=== PATIENT | male | born 1990 | race Caucasian/White ===

== ENCOUNTER 2018-08-25 20:00 | Emergency (ER) | payer OTHER ==
[~2018-08-25] VITALS: Ht 188 cm; Wt 82.5 kg
--- OUTSIDE RECORDS SUMMARY | ~2018-08-25 | XMS | Clinical Summary ---
Demographics + + + | Address | [address] | | | [place] [address] | + + + | Home Phone | | + + + | Preferred Language | Unknown | + + + | Marital Status | Single | + + + | Methodist Affiliation | Unknown | + + + | Race | Unknown | + + + | Ethnic Group | Unknown | + + + Author + + + | Author | [facility] | | | and [place] | + + + | Organization | [facility] | | | and [place] | + + + | Address | Unknown | + + + | Phone | Unavailable | + + + Support + + +---------+ + | Name | Relationship | Address | Phone | + + +---------+ + | JEFF CR | ECON | Unknown | | | Lori/RUIZ Hwang | | | | + + +---------+ + Care Team Providers + +------+ + | Care Bacteriologist Medical Name | Role | Phone | + +------+ + PP | Unavailable | + +------+ + Allergies Not on File Current Medications Not on file Active Problems Not on file Social History + +-------+ +--------+------+ | Tobacco Use | Types | Packs/Day | Years | Date | | | | | Used | | + +-------+ +--------+------+ | Never Assessed | | | | | + +-------+ +--------+------+ + + + | Sex Assigned at | Date Recorded | | | | + + + | Not on file | | + + + Plan of Treatment + + + + + | Health Maintenance | Due Date | Last Done | Comments | + + + + + | Vaccine: | | | | | Dtap/Tdap/Td (1 - | 8 | | | | Tdap) | | | | + + + + + | Vaccine: Influenza | | | | | (#1) | 8 | | | + + + + + Results Not on filefrom Last 3 Months"
--- OUTSIDE RECORDS SUMMARY | ~2018-08-25 | XMS | Clinical Summary ---
Demographics + + + | Address | [address] | | | [place] [address] | + + + | Home Phone | | + + + | Preferred Language | Unknown | + + + | Marital Status | Single | + + + | Shinto Affiliation | Unknown | + + + | Race | Unknown | + + + | Ethnic Group | Unknown | + + + Author + + + | Author | [facility] | | | and [place] | + + + | Organization | [facility] | | | and [...] Team Providers + +------+ + | Care Riprap Placer Name | Role | Phone | + [...]
[~2018-08-25 20:00] MED LIST: ATIVAN1 MG PO; CEPHALEXIN500 MG PO; EXCEDRIN MIGRA1 EAC2 PO; NAPROSYN500 MG PO; NAPROXEN375 MG PO; NORCO 5-325 TA1 EACH PO; ROBAXIN-750750 MG PO; ROBAXIN500 MG PO; TRAMADOL HCL50 MG PO
[2018-08-25] MEDS ORDERED: KEFLEX500 MG PO (22:12)
== END 2018-08-25 23:02 | disposition home or self-care (01) ==
LOC: ED 20:00
DX: L03.115 Cellulitis of right lower limb (principal); F17.200 Nicotine dependence, unspecified, uncomplicated
CPT/HCPCS: 96372; 99283-25; J0696

== ENCOUNTER 2023-03-28 16:41 | Emergency (ER) | payer OTHER ==
[~2023-03-28] VITALS: Ht 188 cm; Wt 89.8 kg
[~2023-03-28 16:41] MED LIST changes: +KEFLEX500 MG PO
[2023-03-28 17:28] LABS: HEMATOCRIT 43.3 % (35.0-50.0)
[2023-03-28 17:31] LABS: BASOPHILS 0.3 % (0-2); EOSINOPHILS 2.6 % (0-6); HEMOGLOBIN 14.4 g/dL (12.0-18.0); LYMPHOCYTES 4.9 % (24-44); MCH 29.5 (27-36); MCHC 33.2 g/dl (30-36); MCV 88.9 fl (81-99); MONOCYTES 4.2 % (0-12); PLATELET COUNT 225 K/uL (140-440); RBC 4.87 M/ul (4.3-5.7); RDW 13.5 (10.5-15.0)
[2023-03-28 17:41] LABS: ALBUMIN 4.4 g/dL (3.4-5.0); ALBUMIN/GLOBULIN RATIO 1.33 (1.1-2.4); ANION GAP 16.2 (7-21); BILIRUBIN, TOTAL 0.9 ng/dL (0.2-1.0); BUN/CREATININE RATIO 8.65 (6.0-28.6); CALCIUM 9.1 mg/dL (8.5-10.1); CREATININE, SERUM 1.04 mg/dL (0.70-1.30); POTASSIUM 4.2 mmol/L (3.5-5.1); PROTEIN, TOTAL 7.7 g/dL (6.4-8.2)
[2023-03-28 18:39] LABS: BILIRUBIN, URINE NEGATIVE (negative); BLOOD/HGB, URINE TRACE-I (Negative); KETONE, URINE NEGATIVE (Negative); LEUK ESTERASE, URINE NEGATIVE (negative); NITRITE, URINE NEGATIVE (negative)
[2023-03-28 18:49] LABS: EPITHELIAL CELLS, URINE SQUAMOUS 1+ /lpf (0-1+); RED BLOOD CELLS, URINE 0-1 /hpf (0-5); REFLEX CULTURE, URINE No (No); WHITE BLOOD CELLS, URINE 0-1 /HPF (0-5)
[2023-03-28] MEDS ORDERED: ONDANSETRON ODT8 MG PO (20:12)
[2023-03-28 20:30] VITALS: BP 135/89
== END 2023-03-28 20:30 | disposition home or self-care (01) ==
LOC: ED 16:41
PROVIDERS: Emergency Medicine
DX: K52.9 Noninfective gastroenteritis and colitis, unspecified (principal); F17.200 Nicotine dependence, unspecified, uncomplicated; Z79.899 Other long term (current) drug therapy
CPT/HCPCS: 36415; 71045; 76705; 80053; 81001; 83690; 85025; 85379; 96374; 99284-25; A9270; J2405; J7030